=== PATIENT | male | born 2000 | race Caucasian/White ===

== ENCOUNTER 2019-07-04 02:18 | Emergency (ER) | payer SELFPAY ==
[~2019-07-04] VITALS: Ht 175.3 cm; Wt 76.6 kg
[2019-07-04] MEDS ORDERED: BACTRIM DS1 TAB PO (04:03)
[2019-07-04 04:10] VITALS: BP 122/76
== END 2019-07-04 04:10 | disposition home or self-care (01) | DRG 603 ==
LOC: ED 02:18
PROC: 0H9EXZZ Drainage of Left Lower Arm Skin, External Approach (ICD-10-PCS; principal; 2019-07-04)
DX: L02.414 Cutaneous abscess of left upper limb (principal); F17.200 Nicotine dependence, unspecified, uncomplicated